=== PATIENT | female | born 1975 | race Caucasian/White ===

== ENCOUNTER → 2017-01-27 | Outpatient (CLI) | payer OTHER ==
--- NOTE | ~2017-01-27 | MY11 ---
[facility] A Service of [facility] RADIOLOGY TEXT RESULTS PATIENT: PAVEL CARO LOCATION: [facility] : 71 UNIT #: [id number] AGE: [address]: Raman Padilla MD SEX: F ORDER DR: [id number] [facility]. [place], [place] [address] [id number] O MR#: [id number] Acc #: [id number] NAME: PAVEL CARO : 1975 SEX: F STUDY DATE/TIME: 01/27/2017 16:25 UNIT: [facility] ROOM: STUDY DESCRIPTION: MY Mammogram Screening Dig Matthew Attending Physician: Raman Padilla M.D. Referring Physician: Raman Padilla M.D. Ordering Physician: Raman Padilla M.D. Primary Care Physician: Raman Padilla M.D. MEDICAL IMAGING REPORT This report is preliminary unless electronic signature is present EXAM Bilateral Digital Screening Mammogram with CAD INDICATION Breast cancer screening. 40-year-old asymptomatic female who reports a mother with premenopausal breast cancer diagnosed in her 30's. COMPARISON October 16, 2015 FINDINGS There are scattered fibroglandular tissues. No suspicious findings are present. IMPRESSION No mammographic evidence of malignancy. Annual screening mammography and clinical breast exam are recommended. A result letter will be sent to the patient. Patients over the age of 40 are entered into a reminder system with target due date for the next mammogram. BIRADS: 1 Negative Dictated by... Bassam Braswell M.D. THIS IS AN ELECTRONICALLY VERIFIED REPORT Bassam Braswell M.D. at 01/30/2017 5:21 PM [facility] A Service [facility] RADIOLOGY TEXT RESULTS PATIENT: PAVEL CARO LOCATION: [facility] : 71 UNIT #: [id number] AGE: [address]: Raman Padilla MD SEX: F ORDER DR: Jaquelin TD: 01/30/2017 09:31 JOB #: [id number] MEDICAL IMAGING REPORT Page 1 of 1 COPY
== END | disposition home or self-care (01) ==
LOC: CWCC 16:01
DX: Z12.31 Encounter for screening mammogram for malignant neoplasm of breast (principal); Z80.3 Family history of malignant neoplasm of breast
CPT/HCPCS: G0202